=== PATIENT | male | born 1970 | race Two or more races ===

== ENCOUNTER 2018-05-10 08:43 | Inpatient (IN) | payer BC ==
[~2018-05-10] VITALS: Ht 170.2 cm; Wt 92.1 kg
[2018-05-10 08:52] VITALS: Ht 170.2 cm; Wt 92.1 kg
[2018-05-10 10:11] LABS: microscopic required? NO
[2018-05-10 10:20] LABS: UA SPECIFIC GRAVITY 1.015 (1.005-1.035); urine erythrocyte NEGATIVE (NEGATIVE)
[2018-05-10 10:28] LABS: CALCIUM 8.2 mg/dL (8.5-10.1); CARBON DIOXIDE 33.3 mmol/L (21-32); CHLORIDE SERUM 104 mmol/L (98-107); CREATININE SERUM 1.1 mg/dL (0.7-1.3); GFR1 > 60 mL/min; GLUCOSE SERUM 112 mg/dL (74-106); POTASSIUM SERUM 4.1 mmol/L (3.5-5.1); SODIUM SERUM 142 mmol/L (136-145)
[2018-05-10 10:32] LABS: ALBUMIN 3.3 g/dL (3.4-5.0); ALKALINE PHOSPHATASE 100 U/L (46-116); ALT/SGPT 51 U/L (16-63); AST/SGOT 29 U/L (15-37); BILIRUBIN TOTAL 0.4 mg/dL (0.20-1.00); CHOLESTEROL 197 mg/dL (<200); CHOLESTEROL/HDL RATIO 4.3; HDL CHOLESTEROL 46 mg/dL (40-60); LIPASE 140 IU/L (73-393); TOTAL PROTEIN, SERUM 7.3 g/dL (6.4-8.2); TRIGLYCERIDES 361 mg/dL (<150)
[2018-05-10 10:35] LABS: T3 TOTAL 1.05 ng/mL
[2018-05-10 10:45] LABS: FREE T4 1.19 ng/dL (0.76-1.46); FREE THYROXINE INDEX 2.3 ug/dL (1.4-4.5); T4(THYROXINE) 6.1 ug/dL (4.7-13.3)
[2018-05-10 10:49] LABS: BASOPHIL % 0.9 % (0-2); PLATELET COUNT 234 x10^3mcL (130-400)
[2018-05-10 12:46] LABS: MAGNESIUM 2.1 mg/dL (1.8-2.4)
[2018-05-10 14:26] VITALS: BP 134/68
[2018-05-10 16:25] VITALS: BP 134/68
[2018-05-10 17:45] LABS: AMPHETAMINE QUAL UR NONE DETECTED (See below)
[2018-05-10 18:01] VITALS: BP 113/71
[2018-05-10 21:03] VITALS: BP 105/63
[2018-05-11 05:50] VITALS: BP 111/67
[2018-05-11 06:32] LABS: CALCIUM 8.6 mg/dL (8.5-10.1); CARBON DIOXIDE 31.6 mmol/L (21-32); CHLORIDE SERUM 106 mmol/L (98-107); CREATININE SERUM 1.1 mg/dL (0.7-1.3); GFR1 > 60 mL/min; GLUCOSE SERUM 107 mg/dL (74-106); SODIUM SERUM 142 mmol/L (136-145)
[2018-05-11 07:47] VITALS: BP 128/79
[2018-05-11 08:14] LABS: BASOPHIL % 0.6 % (0-2); PLATELET COUNT 221 x10^3mcL (130-400)
[2018-05-11 12:07] VITALS: BP 131/78
[2018-05-11] MEDS ORDERED: VENTOLIN H0.09 MG/A1 INH (12:12)
[2018-05-11 12:58] VITALS: BP 131/78
[2018-05-11 12:59] VITALS: BP 131/78
== END 2018-05-11 13:27 | disposition home or self-care (01) | DRG 202 ==
LOC: ED 08:43 → DU 11:27
PROVIDERS: Specialist; ADMIT Internal Medicine
DX: J98.09 Other diseases of bronchus, not elsewhere classified (principal); E44.1 Mild protein-calorie malnutrition; I24.9 Acute ischemic heart disease, unspecified; Z82.49 Family history of ischemic heart disease and other diseases of the circulatory system; F17.220 Nicotine dependence, chewing tobacco, uncomplicated; E66.9 Obesity, unspecified; Z68.33 Body mass index [BMI] 33.0-33.9, adult; Z71.3 Dietary counseling and surveillance; E78.1 Pure hyperglyceridemia; R73.03 Prediabetes; E83.51 Hypocalcemia
CPT/HCPCS: 83880; 84439; 87804; J7030; J7620; Q0092